=== PATIENT | male | born 1955 | race American Indian/Alaskan Native ===

== ENCOUNTER 2017-04-15 11:06 | Emergency (ER) | payer SELFPAY ==
--- NOTE | 2017-04-15 16:25 | Emergency Department Report ---
- General Chief complaint: Animal Bite Stated complaint: POSS SPIDER BITE Time Seen by Provider: 04/15/17 16:10 Source: patient Mode of arrival: Ambulatory Limitations: No Limitations - History of Present Illness Initial comments: 62-year-old male past medical history none presents with complaint of abscess to left upper thigh. States it has been ongoing for approximately 6 days. Denies any fever or chills. States that he may have initially been bitten by ants on the leg. Visible area of erythema and fluctuance with abscess head protruding left anterior mid thigh region. Approximately 4-5 inches in diameter. Denies any other lesions patient is ambulatory without assistance states that it has had some spontaneous drainage since yesterday MD complaint: insect bite/sting (possible ant bite initially), abscess/boil Location: LLE Severity: moderate Severity scale (0 -10): 5 Quality: aching Consistency: constant Worsens with: palpation Context: none - Related Data Previous Rx's Medication Instructions Recorded Last Taken Type Cephalexin [Keflex] 500 mg PO Q12HR #14 cap 04/15/17 Unknown Rx Ibuprofen [Motrin] 600 mg PO Q8H PRN #30 tablet 04/15/17 Unknown Rx Sulfamethoxazole/Trimethoprim 1 each PO BID #14 tablet 04/15/17 Unknown Rx [Bactrim DS TAB] Allergies Allergy/AdvReac Type Severity Reaction Status Date / Time No Known Allergies Allergy Unverified 04/15/17 11:22 Abscess Boil HPI - HPI Chief Complaint: Animal Bite Stated Complaint: POSS SPIDER BITE Time Seen by Provider: 04/15/17 16:10 Home Medications: Previous Rx's Medication Instructions Recorded Last Taken Type Cephalexin [Keflex] 500 mg PO Q12HR #14 cap 04/15/17 Unknown Rx Ibuprofen [Motrin] 600 mg PO Q8H PRN #30 tablet 04/15/17 Unknown Rx Sulfamethoxazole/Trimethoprim 1 each PO BID #14 tablet 04/15/17 Unknown Rx [Bactrim DS TAB] Allergies/Adverse Reactions: Allergies Allergy/AdvReac Type Severity Reaction Status Date / Time No Known Allergies Allergy Unverified 04/15/17 11:22 ED Review of Systems ROS: Stated complaint: POSS SPIDER BITE Other details as noted in HPI Constitutional: denies: chills, fever Eyes: denies: eye pain, eye discharge, vision change ENT: denies: ear pain, throat pain Respiratory: denies: cough, shortness of breath, wheezing Cardiovascular: denies: chest pain, palpitations Endocrine: no symptoms reported Gastrointestinal: denies: abdominal pain, nausea, diarrhea Genitourinary: denies: urgency, dysuria Musculoskeletal: denies: back pain, joint swelling, arthralgia Skin: denies: rash, lesions Neurological: as per HPI. denies: headache, weakness, paresthesias Psychiatric: denies: anxiety, depression Hematological/Lymphatic: denies: easy bleeding, easy bruising ED Past Medical Hx - Past Medical History Previous Medical History?: No - Surgical History Past Surgical History?: No - Social History Smoking Status: Current Some Day Smoker Substance Use Type: None - Medications Home Medications: Home Medications Medication Instructions Recorded Confirmed Last Taken Type Cephalexin [Keflex] 500 mg PO Q12HR #14 cap 04/15/17 Unknown Rx Ibuprofen [Motrin] 600 mg PO Q8H PRN #30 tablet 04/15/17 Unknown Rx Sulfamethoxazole/Trimethoprim 1 each PO BID #14 tablet 04/15/17 Unknown Rx [Bactrim DS TAB] ED Physical Exam - General Limitations: No Limitations General appearance: alert, in no apparent distress - Head Head exam: Present: atraumatic, normocephalic - Eye Eye exam: Present: normal appearance, PERRL, EOMI - ENT ENT exam: Present: mucous membranes moist - Neck Neck exam: Present: normal inspection - Respiratory Respiratory exam: Present: normal lung sounds bilaterally. Absent: respiratory distress - Cardiovascular Cardiovascular Exam: Present: regular rate, normal rhythm. Absent: systolic murmur, diastolic murmur, rubs, gallop - GI/Abdominal GI/Abdominal exam: Present: soft, normal bowel sounds - Rectal Rectal exam: Present: deferred - Extremities Exam Extremities exam: Present: normal inspection - Expanded Lower Extremity Exam Left Hip exam: Present: normal inspection, full ROM Upper Leg exam: Present: tenderness, swelling (visible abscess approximately 8- 9 cm in diameter with surrounding cellulitis left upper anterior thigh region.) Knee exam: Present: normal inspection, full ROM Lower Leg exam: Present: normal inspection, full ROM Ankle exam: Present: normal inspection, full ROM Foot/Toe exam: Present: normal inspection, full ROM Neuro vascular tendon exam: Present: no vascular compromise (distal dorsalis pedis and posterior tibial pulses are intact) 1 - Abscess site here, palpable fluctuance and tenderness with some induration of skin, diameter approximately 10 cm - Back Exam Back exam: Present: normal inspection - Neurological Exam Neurological exam: Present: alert, oriented X3, CN II-XII intact, normal gait - Psychiatric Psychiatric exam: Present: normal affect, normal mood - Skin Skin exam: Present: warm, dry, intact, normal color. Absent: rash ED Course Vital Signs 04/15/17 04/15/17 11:18 16:33 Temperature 98.8 F Pulse Rate 75 52 L Respiratory 20 18 Rate Blood Pressure 146/88 Blood Pressure 151/75 [Right] O2 Sat by Pulse 99 100 Oximetry - I & D Left Upper Anterior Thigh Type of Procedure: Simple Site: left upper anterior mid thigh region Blade Size: 11 (single vertical incision approximately 2 cm made to central aspect of abscess) I & D Procedure: betadine prep, sterile drapes applied, sterile dressing applied , gauze wick placed (approximately 6 inches long of 1 inch iodoform gauze) Progress: Area infiltrated with lidocaine without epinephrine approximately 3 mL, good anesthesia achieved. Single vertical 2 cm incision made, as moderate amount of purulent drainage approximately 8-9 mL. Patient experienced significant relief , significant decrease in fluctuance of abscess. Area irrigated with saline. Iodoform gauze wick placed approximately 6 inches in length. Area covered with 4 x 4 gauze, minimal bleeding. Procedure tolerated well ED Medical Decision Making - Medical Decision Making A/P: Left thigh abscess 1-incision and drainage performed, wound culture sent. Significant relief of pain induration and fluctuance after I&D. Area packed with iodoform gauze approximately 6 inches in length. I advised patient to remove the gauze at home either tonight or tomorrow morning. 2-Bactrim and Keflex twice a day 7 days. Motrin 600 when necessary. 3-advised the patient that if abscess re-accumulates or if he experiences fevers and chills or difficulty ranging his leg to return to the ED. Patient stated he understood my instructions clearly Critical care attestation.: If time is entered above; I have spent that time in minutes in the direct care of this critically ill patient, excluding procedure time. ED Disposition Clinical Impression: Abscess of left thigh Disposition: DC-01 TO HOME OR SELFCARE Is pt being admited?: No Does the pt Need Aspirin: No Condition: Stable Instructions: Cellulitis (ED), Abscess Incision and Drainage (ED), Acute Wound Care (ED), Abscess (ED) Prescriptions: Cephalexin [Keflex] 500 mg PO Q12HR #14 cap Ibuprofen [Motrin] 600 mg PO Q8H PRN #30 tablet PRN Reason: Pain Sulfamethoxazole/Trimethoprim [Bactrim DS TAB] 1 each PO BID #14 tablet Referrals: [facility] [Provider Group] - 3-5 Days Forms: Work/School Release Form(ED) Time of Disposition: 16:31
[2017-04-15 16:34] VITALS: BP 151/75
== END 2017-04-15 16:30 | disposition home or self-care (01) ==
LOC: ED 11:06
DX: L02.416 Cutaneous abscess of left lower limb (principal); F17.200 Nicotine dependence, unspecified, uncomplicated
CPT/HCPCS: 87076; 87116; 87186

== ENCOUNTER 2020-08-29 10:22 | Emergency (ER) | payer SELFPAY ==
--- NOTE | 2020-08-29 10:39 | Event Note ---
ED Screening Note Date of service: 08/29/20 Time: 10:38 ED Screening Note: Patient complains of dizziness while lying down Denies headache, chest pain, or shortness of breath This initial assessment/diagnostic orders/clinical plan/treatment(s) is/are subject to change based on patients health status, clinical progression and re- assessment by fellow clinical providers in the ED. Further treatment and workup at subsequent clinical providers discretion. Patient/guardian urged not to elope from the ED as their condition may be serious if not clinically assessed and managed. Initial orders include: Labs EKG
[2020-08-29 11:21] LABS: Basophils # (Auto) 0.1 K/mm3 (0.0-0.1); Basophils % (Auto) 1.1 % (0.0-1.8); Eosinophils # (Auto) 0.2 K/mm3 (0.0-0.4); Eosinophils % (Auto) 2.7 % (0.0-4.3); Hematocrit 40.7 % (35.5-45.6); Hemoglobin 13.2 gm/dl (11.8-15.2); Lymphocytes # (Auto) 2.6 K/mm3 (1.2-5.4); Lymphocytes % (Auto) 43.2 % (13.4-35.0); Mean Corpuscular HGB Conc 32 % (32-34); Mean Corpuscular Volume 84 fl (84-94); Monocytes # (Auto) 0.6 K/mm3 (0.0-0.8); Monocytes % (Auto) 9.8 % (0.0-7.3); Platelet Count 210 K/mm3 (140-440); Red Blood Count 4.86 M/mm3 (3.65-5.03); Red Cell Distribution Width 14.7 % (13.2-15.2)
[2020-08-29 11:44] LABS: Alanine Aminotransferase 14 units/L (7-56); Albumin 4.4 g/dL (3.9-5); BUN/Creatinine Ratio 8; Blood Urea Nitrogen 7 mg/dL (9-20); Calcium 9.4 mg/dL (8.4-10.2); Hemolysis Index 7
[2020-08-29] MEDS ORDERED: MECLIZINE 25 MG TAB PO ONE (13:52)
[2020-08-29] MEDS ORDERED: ACETAMINOPHEN 325 MG TAB PO ONE (13:52)
[2020-08-29] MEDS ORDERED: dexAMETHasone 20 MG/5 ML VIAL IM ONE (13:52)
--- NOTE | 2020-08-29 13:53 | Emergency Department Report ---
ED Dizziness HPI - General Chief Complaint: Dizziness Stated Complaint: HEAD PAIN Time Seen by Provider: 08/29/20 10:37 Source: patient Mode of arrival: Ambulatory Limitations: No Limitations - History of Present Illness Initial Comments: 65 year old male with past medical hx of sinus/allergies but otherwise no other significant past medical history presents to ED c/o feeling dizzy. Patient states his symptoms started about 1 week ago. He states that he feels dizzy mainly when he lays down on the right side, when he leans forward, and if he turns his head too fast. He describes as a spinning sensation. He states that it has been intermittent for the past week. He denies any head injury. He denies any associated nausea, vomiting, speech changes, vision changes, focal weakness, numbness or tingling. Patient states that he does feel similar symptoms when his sinuses/allergies starts to act up, but typically when he takes a Claritin he gets better. He has tried taking Claritin this past week without much relief of his symptoms. He denies any chest pain, shortness of breath, abdominal pain, URI symptoms fever or chills. He also complains of pain to his posterior left thigh which started about 3 weeks ago. He believes he may have pulled a muscle when he was playing tennis. He states that the pain is worse on palpation, and when he walks. States pain radiates sometimes into his left buttocks. He denies any apparent bruising or swelling. He denies any back pain. He denies tobacco abuse. Complaint: dizziness -: Gradual, week(s) (1) - Related Data Previous Rx's Medication Instructions Recorded Last Taken Type Diclofenac 1% [Diclofenac 1% 2 gm TP QID PRN #100 gel..gram. 08/29/20 Unknown Rx topical gel] Fluticasone [Flonase] 2 spray NS QDAY #1 bottle 08/29/20 Unknown Rx Meclizine [Antivert] 25 mg PO TID PRN #30 tablet 08/29/20 Unknown Rx Allergies Allergy/AdvReac Type Severity Reaction Status Date / Time No Known Allergies Allergy Unverified 04/15/17 11:22 ED Review of Systems ROS: Stated complaint: HEAD PAIN Other details as noted in HPI Comment: All other systems reviewed and negative Constitutional: denies: chills, fever ENT: denies: ear pain, throat pain Respiratory: denies: cough, shortness of breath, wheezing Cardiovascular: denies: chest pain, palpitations Genitourinary: denies: urgency, dysuria Musculoskeletal: myalgia. denies: back pain, joint swelling, arthralgia Neurological: vertigo. denies: headache, weakness, numbness, paresthesias, confusion, abnormal gait Psychiatric: denies: anxiety, depression Hematological/Lymphatic: denies: easy bleeding, easy bruising ED Past Medical Hx - Past Medical History Previous Medical History?: No - Surgical History Past Surgical History?: No - Social History Smoking Status: Current Every Day Smoker Substance Use Type: Alcohol - Medications Home Medications: Home Medications Medication Instructions Recorded Confirmed Last Taken Type Diclofenac 1% [Diclofenac 1% 2 gm TP QID PRN #100 gel..gram. 08/29/20 Unknown Rx topical gel] Fluticasone [Flonase] 2 spray NS QDAY #1 bottle 08/29/20 Unknown Rx Meclizine [Antivert] 25 mg PO TID PRN #30 tablet 08/29/20 Unknown Rx ED Physical Exam - General Limitations: No Limitations General appearance: alert, in no apparent distress - Head Head exam: Present: atraumatic, normocephalic, normal inspection - Eye Eye exam: Present: normal appearance, PERRL Pupils: Present: normal accommodation - ENT ENT exam: Present: normal exam, normal orophraynx, mucous membranes moist, other (TMs cloudy with effusion noted. No erythema, perforation or apparent bulging) - Respiratory Respiratory exam: Present: normal lung sounds bilaterally. Absent: respiratory distress - Cardiovascular Cardiovascular Exam: Present: regular rate, normal rhythm, normal heart sounds - GI/Abdominal GI/Abdominal exam: Present: soft, distended - Extremities Exam Extremities exam: Present: normal inspection, full ROM, tenderness (Patient has mild tenderness to palpation to his left quadricep muscles.). Absent: pedal edema, joint swelling, calf tenderness - Back Exam Back exam: Present: normal inspection, full ROM - Neurological Exam Neurological exam: Present: alert, oriented X3, CN II-XII intact, normal gait, other. Absent: motor sensory deficit - Expanded Neurological Exam Expanded Patient oriented to: Present: person, place, time Cranial nerves: EOM's Intact: Normal, Gag Reflex: Normal, Tongue Deviation: Normal, Nystagmus: Normal, Facial Sensation: Normal, Facial Palsy with Forehead Movement: Normal, Facial Palsy without Forehead Movement: Normal Cerebellar function: Finger to Nose: Normal, Heel to Eckert: Normal, Romberg: Normal Motor strength exam: RUE: 5, LUE: 5, RLE: 5, LLE: 5 Best Eye Response (Maurice): (4) open spontaneously Best Motor Response (Maurice): (6) obeys commands Best Verbal Response (Maurice): (5) oriented Maurice Total: 15 - Psychiatric Psychiatric exam: Present: normal affect, normal mood - Skin Skin exam: Present: intact ED Course Vital Signs 08/29/20 08/29/20 10:35 14:49 Temperature 97.6 F Pulse Rate 53 L Respiratory 18 18 Rate Blood Pressure 160/77 O2 Sat by Pulse 100 Oximetry ED Medical Decision Making - Lab Data Result diagrams: 08/29/20 10:57 08/29/20 10:57 - EKG Data EKG shows normal: sinus rhythm Rate: bradycardia (48) - EKG Data 08/29/20 14:50 No STEMI/ischemic changes; Sinus oskar at 48 but otherwise normal ekg - Radiology Data Radiology results: report reviewed - Medical Decision Making [id number] --65-year-old male with a past medical history of allergies/sinus disease presents to the ER today complaint of feeling dizzy which started about 2 days ago. He reports that the dizziness is mainly when he lays on his right side, w hen he leans forward and if he moves his head too quickly. Patient has no past medical history of diabetes, hypertension, hyperlipidemia, TIA/CVA, CAD, significant dysrhythmia or any significant past medical history. CT head shows nothing acute. Chest x-ray normal. Venous Doppler left lower leg normal. Labs reviewed, troponin is normal, CBC as well as chemistries unremarkable. EKG showed sinus bradycardia with a heart rate of 48 but otherwise no ischemic changes or STEMI. His vital signs show some hypertension, heart rate of 53, but remaining vital signs were within normal limits. Physical exam shows a well-appearing male who is in no acute distress, nontoxic and appears well-hydrated. He is awake alert oriented x3. He is neurologically intact with a normal gait. Based on physical exam, history, and patient's current condition I do not suspect TIA/CVA, acute coronary syndrome/PE, significant dysrhythmia, meningitis, sepsis or other pathology requiring admission, or emergent consultation at this time. I suspect that patient symptoms may be related to vertigo, he does have some fluid behind his areas, and that could also be contributing to his symptoms at this time. His previous vital signs were reviewed, and it was noted that patient has had low heart rate in the 50s since 2017. He also reports that he plays tennis every weekend. His past blood pressures were also reviewed, and noted to be 140s 150s systolic. Reviewed the entire case with Dr. Gardner, agreed with eval and plan for d/c. Discussed suspected diagnosis and treatment plan with patient. He currently does not have a primary care doctor, informed him that I will give him a referral to a primary care doctor and it important that he follows up with the primary care doctor for continued monitoring of his heart rate and his blood pressure. Discussed worsening signs and symptoms with patient and to return immediately to the ER if they develop. Patient stable at time of discharge. Critical care attestation.: If time is entered above; I have spent that time in minutes in the direct care of this critically ill patient, excluding procedure time. ED Disposition Clinical Impression: Vertigo, Hamstring strain Disposition: DC-01 TO HOME OR SELFCARE Is pt being admited?: No Does the pt Need Aspirin: No Condition: Stable Instructions: Hamstring Strain, Dizziness, [id number] Additional Instructions: Take the meclizine, Flonase and Voltaren gel as prescribed. Continue taking your Claritin every day. It is important that you follow-up with the primary care doctor listed on your discharge instruction for continued monitoring of your heart rate and your vital signs. Return to the ER if you have symptoms worsen or changes in any way. Prescriptions: Meclizine [Antivert] 25 mg PO TID PRN #30 tablet PRN Reason: Vertigo Diclofenac 1% [Diclofenac 1% topical gel] 2 gm TP QID PRN #100 gel..gram. PRN Reason: PAIN Fluticasone [Flonase] 2 spray NS QDAY #1 bottle Referrals: IRINA TANG MD [Staff Physician] - 3-5 Days Time of Disposition: 15:48
--- NOTE | 2020-08-29 14:27 | Vascular Lab Report ---
DUPLEX DOPPLER LOWER EXTREMITY VEINS, LEFT INDICATION / CLINICAL INFORMATION: Left thigh pain. TECHNIQUE: Duplex doppler imaging was performed through the veins of the left lower extremity using venous compr ession and other maneuvers. COMPARISON: None available. FINDINGS: LEFT COMMON FEMORAL VEIN: Negative. LEFT FEMORAL VEIN: Negative. LEFT POPLITEAL VEIN: Negative. LEFT CALF VEINS: Negative. ADDITIONAL FINDINGS: None. IMPRESSION: 1. No sonographic evidence for DVT in the left lower extremity. Signer Name: Dillan Ruiz MD Signed: 08/29/2020 2:23 PM Workstation Name: [id number]
--- NOTE | 2020-08-29 15:02 | Cat Scan Report ---
CT HEAD WITHOUT CONTRAST INDICATION / CLINICAL INFORMATION: dizziness. TECHNIQUE: Axial imaging performed from the skull apex through the skull base without the use of cont rast. Sagittal and coronal reformatted images. All CT scans at this location are performed using CT dose reduction for ALARA by means of automated exposure control. COMPARISON: None available. FINDINGS: CEREBRAL PARENCHYMA: No significant abnormality. No acute territorial infarct. HEMORRHAGE: None. EXTRA-AXIAL SPACES: Normal in size and morphology for the patient's age. VENTRICULAR SYSTEM: Normal in size and morphology for the patient's age. MIDLINE SHIFT OR HERNIATION: None. CEREBELLUM / BRAINSTEM: No significant abnormality. CALVARIUM: No significant abnormality. ORBITS: Normal as visualized. PARANASAL SINUSES / MASTOID AIR CELLS: Normal as visualized. SOFT TISSUES of HEAD: No significant abnormality. ADDITIONAL FINDINGS: None. IMPRESSION: No acute intracranial abnormality. Signer Name: Dirk Mays Jr, MD Signed: 08/29/2020 2:58 PM Workstation Name: [id number]
--- NOTE | 2020-08-29 15:14 | XRay Report ---
CHEST 1 VIEW 08/29/2020 3:05 PM INDICATION / CLINICAL INFORMATION: dizzy . COMPARISON: None available. FINDINGS: SUPPORT DEVICES: None. HEART / MEDIASTINUM: No significant abnormality. LUNGS / PLEURA: No significant pulmonary or pleural abnormality. No pneumothorax. ADDITIONAL FINDINGS: No significant additional findings. IMPRESSION: No acute abnormality. Signer Name: Omari Maloney MD Signed: 08/29/2020 3:10 PM Workstation Name: [id number]
[2020-08-29 16:08] VITALS: BP 158/72
== END 2020-08-29 16:08 | disposition home or self-care (01) ==
LOC: ED 10:22
DX: S76.312A Strain of muscle, fascia and tendon of the posterior muscle group at thigh level, left thigh, initial encounter (principal); R42 Dizziness and giddiness; F17.200 Nicotine dependence, unspecified, uncomplicated; Z79.899 Other long term (current) drug therapy; X58.XXXA Exposure to other specified factors, initial encounter; Y93.89 Activity, other specified; Y92.89 Other specified places as the place of occurrence of the external cause; Y99.8 Other external cause status
CPT/HCPCS: 36415; 70450; 71045; 80053; 84484; 85025; 93005; 93971; 96372; 99284; J1100